=== PATIENT | male | born 1955 | race Caucasian/White ===

== ENCOUNTER 2021-10-23 08:16 | Outpatient (CLI) | payer MEDICARE, BC, SELFPAY ==
--- NOTE | 2021-10-23 08:30 | CRLHL7_ITS ---
For Patients: As a result of the Cures Act, medical imaging exams and procedure reports are released immediately into your electronic medical record. You may view this report before your referring provider. If you have questions, please contact your health care provider. Indication: Neck pain unresponsive Technique: Three-view cervical spine Comparison: No comparison Findings: Normal height and alignment of the cervical vertebral bodies. Diffuse mild disc space narrowing osteophytic changes lateral masses of C1 align with the articular processes of T2. Prevertebral soft tissues within normal limits. Impression: No acute fractures or acute osseous abnormalities. Mild degenerative change of the cervical spine. Dictated by Janell Gómez MD @ 10/23/2021 9:15:56 AM (Electronically Signed)
--- NOTE | 2021-10-23 08:45 | CRLHL7_ITS ---
For Patients: As a result of the Cures Act, medical imaging exams and procedure reports are released immediately into your electronic medical record. You may view this report before your referring provider. If you have questions, please contact your health care provider. Indication: Neck pain unresponsive Technique: Two-view thoracic spine Comparison: No comparison: Findings : Normal alignment. No deaf acute fractures are seen. No acute osseous abnormalities. Minimal mild superior endplate compression of a mid thoracic vertebral body age indeterminate. Dictated by Janell Gómez MD @ 10/23/2021 9:19:10 AM (Electronically Signed)
== END 2021-10-23 08:17 | disposition home or self-care (01) ==
PROVIDERS: Visit Provider Chiropractor
DX: M54.2 Cervicalgia (principal)
CPT/HCPCS: 72040; 72072